=== PATIENT | male | born 1965 | race Asian ===

== ENCOUNTER 2018-09-05 07:59 | Day surgery (SDC) | payer MEDICAID ==
[2018-09-05] MEDS ORDERED: fentaNYL 0.05 MG/ML VIAL ONE (11:36)
[2018-09-05] MEDS ORDERED: LIDOCAINE 2% 100 MG/5 ML UJET TP ONE ×2 (11:36→11:58)
[2018-09-05] MEDS ORDERED: MIDAZOLAM 2 MG/2 ML VIAL ONE (11:45)
== END 2018-09-05 12:40 | disposition home or self-care (01) ==
LOC: MTU 07:59 → MDS 07:59
PROVIDERS: ATTEND Internal Medicine Gastroenterology
DX: Z12.11 Encounter for screening for malignant neoplasm of colon (principal); D12.0 Benign neoplasm of cecum; K57.30 Diverticulosis of large intestine without perforation or abscess without bleeding; E11.9 Type 2 diabetes mellitus without complications; E78.00 Pure hypercholesterolemia, unspecified; Z79.82 Long term (current) use of aspirin; Z79.899 Other long term (current) drug therapy; Z72.89 Other problems related to lifestyle; Z79.84 Long term (current) use of oral hypoglycemic drugs
CPT/HCPCS: 45385; J3010; J2250